=== PATIENT | male | born 1960 | race American Indian/Alaskan Native ===

== ENCOUNTER 2016-07-12 21:16 | Emergency (ER) | payer SELFPAY ==
[2016-07-12 22:04] VITALS: BP 160/94
[2016-07-12 23:37] LABS: Bacteria,Urine 1+ /HPF (Negative); Bilirubin,Urine NEG (Negative); Ketones,Urine NEG (Negative); Leukocyte Esterase,Urine NEG (Negative); Mucus,Urine FEW /HPF; Nitrite,Urine POS (Negative)
[2016-07-13 00:02] LABS: Blood,Urine Large (Negative)
--- NOTE | 2016-07-13 00:08 | Emergency Department Report ---
ED Male HPI - General Chief complaint: Urogenital-Male Stated complaint: BURNING SENSATION IN URINATION Time Seen by Provider: 07/12/16 22:56 Source: patient Mode of arrival: Ambulatory Limitations: No Limitations - History of Present Illness Initial comments: This is a 56-year-old male well-nourished with nontoxic or ill in appearance that presents with painful urination and burning sensation for the past weeks. Patient denies any fever, hematuria, back pain, abdominal pain, lesions in the penile area, denies discharge, chest pain, shortness of breath, chills, or headache. Patient is not concerned about STD due to no sexual interaction for the past year. Patient has been taking [id number] Uristat with no relief. Patient denies any allergies. MD Complaint: dysuria -: Gradual, month(s) Radiation: none Severity: mild Severity scale (0 -10): 4 Consistency: constant Improves with: none Worsens with: none dysuria. denies: discharge, swelling, mass, rash, urinary retention, blood in urine, fever, nausea/vomiting, incontinence - Related Data Previous Rx's Medication Instructions Recorded Last Taken Type Levofloxacin [Levaquin TAB] 750 mg PO QDAY #5 tablet 07/13/16 Unknown Rx Allergies Allergy/AdvReac Type Severity Reaction Status Date / Time No Known Allergies Allergy Unverified 07/12/16 22:04 ED Review of Systems ROS: Stated complaint: BURNING SENSATION IN URINATION Other details as noted in HPI Constitutional: denies: chills, fever Eyes: denies: eye pain, eye discharge, vision change ENT: denies: ear pain, throat pain Respiratory: denies: cough, shortness of breath, wheezing Cardiovascular: denies: chest pain, palpitations Endocrine: no symptoms reported Gastrointestinal: denies: abdominal pain, nausea, diarrhea Genitourinary: denies: urgency, dysuria Musculoskeletal: denies: back pain, joint swelling, arthralgia Skin: denies: rash, lesions Neurological: denies: headache, weakness, paresthesias Psychiatric: denies: anxiety, depression Hematological/Lymphatic: denies: easy bleeding, easy bruising ED Past Medical Hx - Past Medical History Previous Medical History?: No - Surgical History Additional Surgical History: right knee/right shoulder - Social History Smoking Status: Never Smoker Substance Use Type: Alcohol - Medications Home Medications: Home Medications Medication Instructions Recorded Confirmed Last Taken Type Levofloxacin [Levaquin TAB] 750 mg PO QDAY #5 tablet 07/13/16 Unknown Rx ED Physical Exam - General Limitations: No Limitations General appearance: alert, in no apparent distress - Head Head exam: Present: atraumatic, normocephalic - Eye Eye exam: Present: normal appearance, PERRL, EOMI. Absent: scleral icterus, conjunctival injection, nystagmus, periorbital swelling, periorbital tenderness Pupils: Present: normal accommodation - ENT ENT exam: Present: normal exam, normal orophraynx, mucous membranes moist, TM's normal bilaterally, normal external ear exam - Neck Neck exam: Present: normal inspection, full ROM. Absent: tenderness, meningismus, lymphadenopathy, thyromegaly - Respiratory Respiratory exam: Present: normal lung sounds bilaterally. Absent: respiratory distress, wheezes, rales, rhonchi, stridor - Cardiovascular Cardiovascular Exam: Present: regular rate, normal rhythm, normal heart sounds. Absent: bradycardia, tachycardia, irregular rhythm, systolic murmur, diastolic murmur, rubs, gallop - GI/Abdominal GI/Abdominal exam: Present: soft, normal bowel sounds. Absent: distended, tenderness, guarding, rebound, rigid, diminished bowel sounds - Rectal Rectal exam: Present: deferred - Extremities Exam Extremities exam: Present: normal inspection, full ROM, normal capillary refill. Absent: tenderness, pedal edema, joint swelling, calf tenderness - Back Exam Back exam: Present: normal inspection, full ROM. Absent: tenderness, CVA tenderness (R), CVA tenderness (L), muscle spasm, paraspinal tenderness, vertebral tenderness, rash noted - Neurological Exam Neurological exam: Present: alert, oriented X3, CN II-XII intact, normal gait - Psychiatric Psychiatric exam: Present: normal affect, normal mood - Skin Skin exam: Present: warm, dry, intact, normal color. Absent: rash ED Course Vital Signs 07/12/16 22:01 Temperature 98.7 F Pulse Rate 84 Respiratory 18 Rate Blood Pressure 160/94 O2 Sat by Pulse 96 Oximetry ED Medical Decision Making - Medical Decision Making Ed course: This is a 56-year-old male that presents with urinary tract infection. 1- After my physical exam, UA has been obtained with elevated white blood cell and urine blood. 2- patient received levofloxacin 750 mg by mouth for 5 days. Patient was instructed to finish full course of antibiotics. 3- patient was instructed to follow-up with his primary care doctor in 3-5 days or if symptoms worsen report by Dr. Rosa. 4- at time time of discharge, the patient does not seem toxic or ill in appearance. No acute signs of distress noted. Patient agrees to discharge treatment plan of care. No further questions noted by the patient. Critical care attestation.: If time is entered above; I have spent that time in minutes in the direct care of this critically ill patient, excluding procedure time. ED Disposition Clinical Impression: UTI (urinary tract infection) Qualifiers: Urinary tract infection type: site unspecified Hematuria presence: with hematuria Qualified Code(s): N39.0 - Urinary tract infection, site not specified ; R31.9 - Hematuria, unspecified Disposition: DISCHARGED TO HOME OR SELFCARE Is pt being admited?: No Does the pt Need Aspirin: No Condition: Stable Instructions: Urinary Tract Infection in Men (ED), Dysuria (ED) Additional Instructions: Take full course of antibiotics as prescribed. Follow-up with her primary care doctor in 3-5 days or if symptoms worsen or progress emergency room. Prescriptions: Levofloxacin [Levaquin TAB] 750 mg PO QDAY #5 tablet Referrals: MG HERCULES MD [Primary Care Provider] - 3-5 Days [facility] [Outside] - 3-5 Days [facility] [Outside] - 3-5 Days JENARO MELISSA JR, MD [Staff Physician] - 3-5 Days Forms: Work/School Release Form(ED)
== END 2016-07-13 00:34 | disposition home or self-care (01) ==
LOC: ED 21:16
DX: N39.0 Urinary tract infection, site not specified (principal); R31.9 Hematuria, unspecified
CPT/HCPCS: 81001; 99282

== ENCOUNTER 2016-07-30 13:38 | Emergency (ER) | payer SELFPAY ==
[2016-07-30] MEDS ORDERED: MORPHINE IV PRN ×2 (15:25→18:29)
[2016-07-30] MEDS ORDERED: MORPHINE IV ONE ×2 (15:45→17:54)
[2016-07-30 16:01] LABS: Basophils % (Auto) 0.6 % (0.0-1.8); Eosinophils % (Auto) 0.3 % (0.0-4.3); Hematocrit 44.1 % (35.5-45.6); Hemoglobin 14.1 gm/dl (11.8-15.2); Mean Corpuscular HGB Conc 32 % (32-34); Mean Corpuscular Volume 81 fl (84-94); Platelet Count 316 K/mm3 (140-440); Red Blood Count 5.48 M/mm3 (3.65-5.03); Red Cell Distribution Width 15.7 % (13.2-15.2); White Blood Count 19.2 K/mm3 (4.5-11.0)
[2016-07-30 16:10] LABS: Anion Gap 19 mmol/L; Blood Urea Nitrogen 16 mg/dL (9-20); Calcium 9.8 mg/dL (8.4-10.2); Carbon Dioxide 24 mmol/L (22-30); Chloride 103.7 mmol/L (98-107); Glucose 117 mg/dL (75-100); Mean Corpuscular Hemoglobin 26 pg (28-32); Potassium 4.3 mmol/L (3.6-5.0); Sodium 142 mmol/L (137-145)
[2016-07-30] MEDS ORDERED: ROCEPHIN/NS 1 GM/50 ML 1 GM/50 ML BAG IV ONE (16:41)
[2016-07-30] MEDS ORDERED: DILAUDID IV ONE (16:42)
[2016-07-30] MEDS ORDERED: GARAMYCIN 80 MG in NACL 0.9% 100 ML IV ONE (17:32)
--- NOTE | 2016-07-30 17:40 | Consultation ---
History of Present Illness - Reason for Consult Consult date: 07/30/16 - History of Present Illness 56 yr old present to ER----can't urinate swollen foreskin PMHX NEGATIVE PSHX: SHOULDER SURGERY MEDS ABX NKDA ABD SOFT PHIMOTIC FORESKIN NORMAL TESTES UNDER STERILE CONDITIONS WIRE [employer] TIP CATHETER PLACED 16F HEMASTAT TO OPEN MEATAS HORTENSIA COLOR URINE RETURN A/P RETENTION ARDON IN PLACE GENT 80MG HOME WITH CIPRO & [facility]CO ARDON BIG BAG & LEG BAG APPT 10-14 FOR A VOIDING TRIAL Medications and Allergies Allergies Allergy/AdvReac Type Severity Reaction Status Date / Time No Known Allergies Allergy Unverified 07/12/16 22:04 Home Medications Medication Instructions Recorded Confirmed Last Taken Type Levofloxacin [Levaquin TAB] 750 mg PO QDAY #5 tablet 07/13/16 07/30/16 07/12/16 Rx Active Meds: Active Medications Gentamicin Sulfate 80 mg/ (Sodium Chloride) 102 mls @ 200 mls/hr IV ONCE ONE PRN Reason: Protocol Stop: 07/30/16 18:02 Exam - Constitutional Vitals: Temp Pulse Resp BP Pulse Ox 98.6 F 102 H 18 166/96 96 07/30/16 16:38 07/30/16 16:38 07/30/16 16:38 07/30/16 16:38 07/30/16 16:38 Results - Labs CBC & Chem 7: 07/30/16 15:38 07/30/16 15:38 Labs: Abnormal lab results 07/30/16 07/30/16 Range/Units 15:38 15:38 WBC 19.2 H (4.5-11.0) K/mm3 RBC 5.48 H (3.65-5.03) M/mm3 MCV 81 L (84-94) fl MCH 26 L (28-32) pg RDW 15.7 H (13.2-15.2) % Lymph % (Auto) 9.7 L (13.4-35.0) % [place] # 0.9 H (0.0-0.8) K/mm3 Seg Neutrophils % 84.5 H (40.0-70.0) % Seg Neutrophils # 16.2 H (1.8-7.7) K/mm3 Glucose 117 H (75-100) mg/dL
--- NOTE | 2016-07-30 17:50 | Emergency Department Report ---
ED Male HPI - General Chief complaint: Urogenital-Male Stated complaint: DIFFICULTY URINATING Time Seen by Provider: 07/30/16 14:46 Source: patient Mode of arrival: Ambulatory Limitations: No Limitations - History of Present Illness MD Complaint: dysuria, other (unable to void since 3a) -: Gradual, hour(s) Location: penis Radiation: none Severity: moderate Severity scale (0 -10): 6 Quality: aching Consistency: constant Worsens with: none swelling, urinary retention, dysuria, incontinence. denies: discharge, rash, blood in urine, fever, nausea/vomiting - Related Data Previous Rx's Medication Instructions Recorded Last Taken Type Levofloxacin [Levaquin TAB] 750 mg PO QDAY #5 tablet 07/13/16 07/12/16 Rx Ciprofloxacin [Ciprofloxacin ORAL 500 mg PO Q12H #20 ml 07/30/16 Unknown Rx LIQ] HYDROcodone/APAP 5-325 [[place] 1 each PO Q4HR PRN #12 tablet 07/30/16 Unknown Rx 5/325] Allergies Allergy/AdvReac Type Severity Reaction Status Date / Time No Known Allergies Allergy Unverified 07/12/16 22:04 ED Review of Systems ROS: Stated complaint: DIFFICULTY URINATING Other details as noted in HPI Other: GENERAL: No weight change, fatigue, weakness, fever, chills, or night sweats SKIN: No changes in skin or hair, no itching, no rashes, no jaundice HEAD: No trauma, headache, or visual changes EYES: No blurriness, tearing, itching, acute visual loss, conjunctival discoloration, or scleral icterus EARS: No hearing loss, tinnitus, vertigo, or earache NOSE: No rhinorrhea, stuffiness, sneezing, itching, or epistaxis MOUTH: No bleeding gums, hoarseness, sore throat, or swelling CARDIAC: No new murmur, chest pain, palpitations, dyspnea on exertion, orthopnea , PND, or edema RESPIRATORY: No shortness of breath, wheeze, cough, sputum production, hemoptysis, pneumonia, asthma, bronchitis, or emphysema GI: No change in appetite, nausea, vomiting, dysphagia, change in bowel frequency, diarrhea, constipation, bleeding, hematemesis, melena, hematochezia, or abdominal pain URINARY: No frequency, urgency, polyuria, dysuria, hematuria, or incontinence MUSCULOSKELETAL: No muscle weakness, joint stiffness, decrease in range of motion, redness, swelling, tenderness NEUROLOGIC: No loss of sensation, numbness, tingling, tremors, weakness, paralysis, seizures HEMATOLOGIC: No anemia, easy bruising, bleeding, petechiae, or purpura ENDOCRINE: No hot or cold intolerance, sweating, polyuria, polydipsia or, polyphagia no thyroid problems PSYCHIATRIC: No change in mood, no anxiety, no depression GENITAL: Male: Penile pain, Recent urology visit and prescribed azithromycin and flagyl for possible STD. Reports no physical exam of scrotum. ED Past Medical Hx - Past Medical History Previous Medical History?: Yes Additional medical history: UTI - Surgical History Past Surgical History?: Yes Additional Surgical History: right knee/right shoulder - Social History Smoking Status: Never Smoker Substance Use Type: Alcohol, Prescribed - Medications Home Medications: Home Medications Medication Instructions Recorded Confirmed Last Taken Type Levofloxacin [Levaquin TAB] 750 mg PO QDAY #5 tablet 07/13/16 07/30/16 07/12/16 Rx Ciprofloxacin [Ciprofloxacin ORAL 500 mg PO Q12H #20 ml 07/30/16 Unknown Rx LIQ] HYDROcodone/APAP 5-325 [[place] 1 each PO Q4HR PRN #12 tablet 07/30/16 Unknown Rx 5/325] ED Physical Exam - General Limitations: No Limitations - Other Other exam information: GENERAL: Patient in no acute distress HEAD: Normocephalic, atraumatic EYES: PERRLA, EOM intact, no scleral icterus, no conjunctival hemorrhage, visual mccain and acuity wnl, NOSE: No tenderness, discharge, sinus tenderness MOUTH: No erythema, bleeding, exudate HEART: Regular rate and rhythm, no murmur, S1-S2 are auscultated, pulses are symmetric LUNGS: No wheezing, rales, rhonchi, bilateral breath sounds ABDOMEN: Normal bowel sounds, no tenderness, no rebound, no guarding, no masses , no CVA tenderness MUSCULOSKELETAL: Normal joint range of motion, no redness, no swelling, no tenderness NEUROLOGIC: GCS 15, Alert and Oriented x3, Cranial nerves intact, normal sensation, normal strength, normal gait, no cerebellar deficit PSYCHIATRIC: No homicidal or suicidal ideation, no anxiety, no depression, no hallucinations SKIN: Skin is warm and dry, no wounds, no rashes EARS: No tenderness, discharge, tympanic membrane wnl GENITOURINARY: Male: Phimosis swelling and tenderness of foreskin, No rashes, ulcers, discharge, no scrotal masses, no hernia ED Course Vital Signs 07/30/16 07/30/16 13:48 16:38 Temperature 98.7 F 98.6 F Pulse Rate 60 102 H Respiratory 20 18 Rate Blood Pressure 182/110 Blood Pressure 166/96 [Right] O2 Sat by Pulse 96 96 Oximetry ED Medical Decision Making - Lab Data Result diagrams: 07/30/16 15:38 07/30/16 15:38 - Medical Decision Making Dr. Brooks urology agrees to evaluate the patient in the ER Urology recommends valentin, cipro, norco, discharge with o/p f/u. patient agrees to return if worsen. Critical care attestation.: If time is entered above; I have spent that time in minutes in the direct care of this critically ill patient, excluding procedure time. ED Disposition Clinical Impression: Phimosis UTI (urinary tract infection) Qualifiers: Urinary tract infection type: site unspecified Hematuria presence: without hematuria Qualified Code(s): N39.0 - Urinary tract infection, site not specified Disposition: DC-01 TO HOME OR SELFCARE Is pt being admited?: No Condition: Stable Instructions: Phimosis (ED), Urinary Tract Infection in Men (ED) Prescriptions: Ciprofloxacin [Ciprofloxacin ORAL LIQ] 500 mg PO Q12H #20 ml HYDROcodone/APAP 5-325 [[place] 5/325] 1 each PO Q4HR PRN #12 tablet PRN Reason: Pain Referrals: PRIMARY CARE, [Primary Care Provider] - 3-5 Days MARK TOMLINSON MD [Staff Physician] - 3-5 Days Time of Disposition: 17:50
[2016-07-30] MEDS ORDERED: GARAMYCIN/NS 80 MG/100 ML 100 ML IV ONE (18:00)
[2016-07-30 18:47] LABS: Bilirubin,Urine NEG (Negative); Blood,Urine NEG (Negative); Ketones,Urine TR mg/dL (Negative); Leukocyte Esterase,Urine NEG (Negative); Mucus,Urine FEW /HPF; Nitrite,Urine NEG (Negative); Protein,Urine <15 mg/dL mg/dL (Negative); Urobilinogen,Urine < 2.0 mg/dL (<2.0)
[2016-07-30 20:13] VITALS: BP 133/75
--- NOTE | 2016-07-31 04:26 | Consultation ---
REASON FOR CONSULTATION: Urinary retention. REFERRING PHYSICIAN: Dr. Gonsalo Bragg. HISTORY OF PRESENT ILLNESS: This patient is a 56-year-old gentleman presented to the Emergency Room with difficulty urinating. He was placed on an antibiotic at another institution. He has a swollen foreskin, he is uncircumcised. PAST MEDICAL HISTORY: Unremarkable except for above. PAST SURGICAL HISTORY: Shoulder surgery. ALLERGIES: He has no known drug allergies. PHYSICAL EXAMINATION: GENERAL: He is alert and oriented. VITAL SIGNS: Temperature 98.6, respirations 18, pulse 102, BP 166/96. BACK: No CVA tenderness. ABDOMEN: Soft. GENITOURINARY: Phallus, swollen foreskin. Testes descended bilaterally. Exam is consistent with a meatal stenosis. LABORATORY DATA: BUN and creatinine of 16 and 1.0 respectively. Hemoglobin and hematocrit of 14 and 44 respectively. White count 19,000, platelets 316,000. Under sterile conditions, 16-[place] tip catheter was advanced over a Glidewire. Hemostats were used to open the meatus just a little bit to allow passage of the catheter. Helen colored urine returned. ASSESSMENT: Meatal stenosis, urinary retention. The patient has 16-[place] catheter at this time. Recommend gentamicin, home with Cipro, [place], big bag and leg bag, voiding trial in 7-10 days. JOB# [id number] [facility]
[2016-07-31] MEDS ORDERED: XYLOCAINE 2% UROJET ONE (11:56)
== END 2016-07-30 20:14 | disposition home or self-care (01) ==
LOC: ED 13:38
DX: N47.1 Phimosis (principal); N39.0 Urinary tract infection, site not specified
CPT/HCPCS: 36415; 51702; 80048; 81001; 82140; 85025; 87040; 96365; 96367; 96375; 96376; 99284; J0696; J1170; J1580; J2270

== ENCOUNTER 2017-07-10 16:48 | Emergency (ER) | payer BC ==
[2017-07-10 16:54] VITALS: BP 152/95
[2017-07-10 18:45] LABS: Bacteria,Urine 1+ /HPF (Negative); Bilirubin,Urine NEG (Negative); Blood,Urine NEG (Negative); Color,Urine Yellow (Yellow); Mucus,Urine 3+ /HPF; Protein,Urine <15 mg/dL mg/dL (Negative); Urobilinogen,Urine < 2.0 mg/dL (<2.0)
[2017-07-11] MEDS ORDERED: LEVAQUIN PO ONE (00:18)
[2017-07-11] MEDS ORDERED: PYRIDIUM PO ONE (00:18)
--- NOTE | 2017-07-11 00:18 | Emergency Department Report ---
ED Male HPI - General Chief complaint: Urogenital-Male Stated complaint: POSS INFECTION Time Seen by Provider: 07/10/17 22:53 Source: patient, family Mode of arrival: Ambulatory Limitations: No Limitations - History of Present Illness Initial comments: Patient here for burning on urination for over 2 weeks. He said he saw his primary care doctor and completed antibiotic. He says symptoms return. Burning is only with urination and it is 5 out of 10 burning. Denies any penile rash or lesion. 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 Denies any penile discharge. Patient said he had a complete STD panel which include gonorrhea Chlamydia, Trichomonas, herpes and HIV at the end of April and everything was normal except that he has herpes 1. Patient said his doctor put him on ciprofloxacin for 14 days and he completed entire antibiotic. Denies any fever or chills. Denies any nausea or vomiting. Denies any back or abdominal pain. Patient is not concerned for STDs and does not want to be tested per patient. He said he has had similar symptom when he was treated with ciprofloxacin and his symptoms while way and they came back. No medication taken for pain. Patient said he could not get an appointment with his tremor care physician. Denies ever been told that he has prostatitis. Pain is worse with urinating in and better when he is not urinating. MD Complaint: dysuria Onset/Timin -: week(s) Location: penis Radiation: none Severity scale (0 -10): 5 Quality: burning Consistency: intermittent Improves with: other (when he does not urinate) Worsens with: urination dysuria. denies: discharge, swelling, mass, rash, urinary retention, blood in urine, fever, nausea/vomiting, incontinence - Related Data Sexually active: No (he reports not at present for over the last 6 months) Previous Rx's Medication Instructions Recorded Last Taken Type Ciprofloxacin HCl [Cipro] 500 mg PO Q12H 14 Days #28 tablet 07/11/17 Unknown Rx Phenazopyridine [Pyridium] 200 mg PO Q8H PRN #12 tab 07/11/17 Unknown Rx Allergies Allergy/AdvReac Type Severity Reaction Status Date / Time No Known Allergies Allergy Verified 07/10/17 16:52 ED Review of Systems ROS: Stated complaint: POSS INFECTION Other details as noted in HPI Constitutional: denies: chills, fever ENT: denies: throat pain Respiratory: denies: cough, shortness of breath, wheezing Cardiovascular: denies: chest pain, palpitations, edema, syncope Endocrine: no symptoms reported Gastrointestinal: denies: abdominal pain, nausea, vomiting, diarrhea, constipation, hematemesis, melena, hematochezia Genitourinary: dysuria. denies: urgency, frequency, hematuria, discharge, testicular pain, testicular mass Musculoskeletal: denies: back pain, joint swelling, arthralgia Skin: denies: rash, lesions Neurological: denies: headache, weakness ED Past Medical Hx - Past Medical History Previous Medical History?: Yes Additional medical history: UTI recurrent. Herpes 1 - Surgical History Past Surgical History?: Yes Additional Surgical History: right knee/right shoulder - Family History Family history: hypertension - Social History Smoking Status: Current Every Day Smoker Substance Use Type: Alcohol Other Social History: Patient is single - Medications Home Medications: Home Medications Medication Instructions Recorded Confirmed Last Taken Type Ciprofloxacin HCl [Cipro] 500 mg PO Q12H 14 Days #28 tablet 07/11/17 Unknown Rx Phenazopyridine [Pyridium] 200 mg PO Q8H PRN #12 tab 07/11/17 Unknown Rx ED Physical Exam - General Limitations: No Limitations General appearance: alert, in no apparent distress - Head Head exam: Present: atraumatic, normocephalic, normal inspection - Eye Eye exam: Present: normal appearance, PERRL, EOMI Pupils: Present: normal accommodation - ENT ENT exam: Present: normal orophraynx, mucous membranes moist - Neck Neck exam: Present: normal inspection, full ROM. Absent: tenderness, lymphadenopathy - Respiratory Respiratory exam: Present: normal lung sounds bilaterally. Absent: respiratory distress, chest wall tenderness - Cardiovascular Cardiovascular Exam: Present: regular rate, normal rhythm, normal heart sounds. Absent: systolic murmur, diastolic murmur - GI/Abdominal GI/Abdominal exam: Present: soft, normal bowel sounds. Absent: distended, tenderness, guarding, rebound, rigid, mass, bruit, pulsatile mass, hernia - exam: Present: normal inspection External exam: Present: normal external exam - Extremities Exam Extremities exam: Present: normal inspection, full ROM, normal capillary refill , other (no clubbing, cyanosis or edema. +2 pulses all extremities and no neurovascular compromise). Absent: tenderness, pedal edema, joint swelling, calf tenderness - Back Exam Back exam: Present: normal inspection, other (amplitude and difficulties). Absent: tenderness, CVA tenderness (R), CVA tenderness (L), muscle spasm, paraspinal tenderness, vertebral tenderness, rash noted - Neurological Exam Neurological exam: Present: alert, oriented X3, normal gait - Psychiatric Psychiatric exam: Present: normal affect, normal mood - Skin Skin exam: Present: warm, dry, intact, normal color. Absent: rash ED Course Vital Signs 07/10/17 07/11/17 16:53 01:19 Temperature 98.1 F Pulse Rate 72 74 Respiratory 18 16 Rate Blood Pressure 152/95 O2 Sat by Pulse 96 98 Oximetry - Reevaluation(s) Reevaluation #1: 07/11/17 01:02 Patient started on Levaquin 750 mg by mouth emergency room and also given Pyridium 200 mg by mouth for urinary burning and acute cystitis. ED Medical Decision Making - Lab Data Lab Results 07/10/17 Range/Units 18:07 Urine Color Yellow (Yellow) Urine Turbidity Clear (Clear) Urine pH 5.0 (5.0-7.0) Ur Specific [place] 1.029 (1.003-1.030) Urine Protein <15 mg/dl (Negative) mg/dL Urine Glucose (UA) Neg (Negative) mg/dL Urine Ketones Neg (Negative) mg/dL Urine Blood Neg (Negative) Urine Nitrite Neg (Negative) Urine Bilirubin Neg (Negative) Urine Urobilinogen < 2.0 (<2.0) mg/dL Ur Leukocyte Esterase Lg (Negative) Urine WBC (Auto) 43.0 H (0.0-6.0) /HPF Urine RBC (Auto) 19.0 (0.0-6.0) /HPF U Epithel Cells (Auto) 3.0 (0-13.0) /HPF Urine Bacteria (Auto) 1+ (Negative) /HPF Urine Mucus 3+ /HPF Urine cultures and pending - Medical Decision Making ED course: Diagnosis 1: Urinary tract infection: recurrent. Patient was seen by his PCP recently and placed on Cipro for 14 days. Symptoms went away and return. Suspect maybe prostatitis. will refer to Urologist .UA with leukocyte Estrace, WBC and bacteria with patient complaining of urinary burning . Patient given Levaquin 750 mg po in ED and will discharge home on cipro. Urine culture collected and sent 2: Dysuria:Better with Pyridium 200 mg po x1 in ED and will discharge home on this med. Educated on safe sex, STDs due to HSV 1 dx recently per patient. No break out today. Pt Educated on STD and to practice safe sex. Instructed to discuss preventative [place] for Herpes to avoid breakout Pt Educated on medication and diagnosis and he voiced understanding. Vital signs are stable and she is afebrile prior to discharge. Results on urinalysis discussed with with patient referral to Urology for recurrent UTI in male referral to PCP Patient discharged home in stable condition from emergency room with prescription for Ciprofloxacin and Pyridium - Differential Diagnosis prostatitis, STD, pyelonephritis, acute cystitis, pyelonephritis Critical care attestation.: If time is entered above; I have spent that time in minutes in the direct care of this critically ill patient, excluding procedure time. ED Disposition Clinical Impression: Acute cystitis without hematuria, Dysuria Disposition: TO HOME OR SELFCARE Is pt being admited?: No Does the pt Need Aspirin: No Condition: Stable Instructions: Safe Sex (ED), Urinary Tract Infection in Men (ED), Dysuria (ED) Additional Instructions: Please follow up with a primary care physician and 3-5 days regarding recurrent urinary tract infection. You might have infection a few prostate and will need to follow up for urologist and be treated for longer period With antibiotic. Please increase clear fluid intake to at least 2 L of water and/or cranberry juice daily Take ciprofloxacin to start tomorrow twice daily for 14 days. Please practice safe sex Follow-up with urologist regarding recurrent urinary tract infection. See discharge information and paperwork. You were given her first dose of antibiotic along with medication to help with burning with urination and emergency room tonight so he can start the next dose of antibiotic in the morning. You can also talk to your primary care physician regarding starting suppressive therapy for herpes virus to avoid getting any breakout. Prescriptions: Ciprofloxacin HCl [Cipro] 500 mg PO Q12H 14 Days #28 tablet Phenazopyridine [Pyridium] 200 mg PO Q8H PRN #12 tab PRN Reason: urine burning Referrals: PRIMARY CARE, [Primary Care Provider] - 3-5 Days [facility] [Provider Group] - 3-5 Days Forms: Work/School Release Form(ED)
== END 2017-07-11 01:19 | disposition home or self-care (01) ==
LOC: ED 16:48
DX: N30.00 Acute cystitis without hematuria (principal); F17.200 Nicotine dependence, unspecified, uncomplicated
CPT/HCPCS: 81001; 87086; 99283